=== PATIENT | female | born 1990 | race Caucasian/White ===

== ENCOUNTER → 2017-08-12 | Outpatient (CLI) | payer SELFPAY ==
--- NOTE | 2017-08-12 16:16 | RADIOLOGY REPORT (SQ) ---
EXAM DESCRIPTION: U/S OB TRANSVAGINAL W/O DOP COMPLETED DATE/TIME: 08/12/2017 3:58 pm REASON FOR STUDY: Z34.81 ENCOUNTER FOR SUPRVSN OF NORMAL , FIRST TRIMESTER Z34.81 ENCOUNTE R FOR SUPRVSN OF NORMAL , FIRST TRIM COMPARISON: None. TECHNIQUE: Transvaginal static and realtime grayscale images acquired of the pelvis. Additional sudhir cted spectral and color Doppler images recorded. All images stored on PACs. bHCG: Not available. LIMITATIONS: None. FINDINGS: FETUS: Living intrauterine . EGA: 6 weeks 1 day ISAIAS: 04/06/2018 FHR: 123 beats per minute. SUBCHORIONIC BLEED: No SIZE OF BLEED: Not applicable. UTERUS: No masses or anomalies. 10.2 x 6.1 x 6 cm PE CERVICAL LENGTH: 3 cm Closed. RIGHT ADNEXA: Ovary not seen. No adnexal free fluid. No adnexal masses. LEFT ADNEXA: Normal ovary measures 3.6 x 3.4 x 1.7 cm. There is a 1 x 2 x 1.1 cm cyst. No adnexal free fluid. No adnexal masses. FREE FLUID: None. OTHER: No other significant finding. IMPRESSION: LIVING INTRAUTERINE . EGA 6 weeks 1 day Trimester of : First - 0 to 13 weeks. TECHNICAL DOCUMENTATION: JOB ID: [id number] [employer]- All Rights Reserved
== END ==
LOC: RAD 13:42
PROVIDERS: ATTEND Nurse Practitioner Women's Health
DX: Z34.81 Encounter for supervision of other normal pregnancy, first trimester (principal)
CPT/HCPCS: 76817

== ENCOUNTER 2017-08-23 17:02 | Emergency (ER) | payer MEDICAID ==
--- NOTE | 2017-08-23 17:35 | ER Document Report ---
ED Medical Screen (RME) - General Chief Complaint: Abdominal Pain Stated Complaint: ABDOMINAL PAIN Time Seen by Provider: 08/23/17 17:32 Notes: Patient says that she has had abdominal pain around the umbilicus for the past couple of days. She has had a couple of episodes of vomiting, no diarrhea. No fevers. No UTI symptoms. Patient is about 8 weeks . She has not had any bleeding or spotting. She had an outpatient ultrasound performed here about 2 weeks ago which showed a living IUP. TRAVEL OUTSIDE OF THE [place] IN LAST 30 DAYS: No
[2017-08-23 17:37] VITALS: BP 119/60
[2017-08-23 18:15] LABS: ABSOLUTE BASOPHILS # (AUTO) 0.1 10^3/uL (0.0-0.2); ABSOLUTE EOSINOPHILS # (AUTO) 0.3 10^3/uL (0.0-0.6); ABSOLUTE LYMPHOCYTES (AUTO) 2.6 10^3/uL (0.5-4.7); ABSOLUTE MONOCYTES (AUTO) 0.8 10^3/uL (0.1-1.4); ABSOLUTE NEUT (AUTO) 6.6 10^3/uL (1.7-8.2); BASOPHILS % (AUTO) 0.7 % (0-2); EOSINOPHILS % (AUTO) 2.9 % (0-6); HEMATOCRIT 36.4 % (36.0-47.0); HEMOGLOBIN 12.3 g/dL (12.0-15.5); HGB HCT DIFFERENCE 0.5; MEAN CORPUSCULAR HEMOGLOBIN 30.4 pg (27.0-33.4); MEAN CORPUSCULAR HGB CONC 33.9 g/dL (32.0-36.0); MEAN CORPUSCULAR VOLUME 90 fl (80-97); MONOCYTES % (AUTO) 7.9 % (3-13); RED BLOOD COUNT 4.06 10^6/uL (3.72-5.28); RED CELL DISTRIBUTION WIDTH 13.4 % (11.5-14.0); SEGMENTED NEUTROPHILS % (AUTO) 63.5 % (42-78); WHITE BLOOD COUNT 10.4 10^3/uL (4.0-10.5)
[2017-08-23 18:38] LABS: ALANINE AMINOTRANSFERASE 21 U/L (9-52); ALBUMIN 4.2 g/dL (3.5-5.0); ALKALINE PHOSPHATASE 65 U/L (38-126); ANION GAP 13 (5-19); ASPARTATE AMINO TRANSFERASE 14 U/L (14-36); BILIRUBIN,DIRECT 0.3 mg/dL (0.0-0.4); BILIRUBIN,TOTAL 0.4 mg/dL (0.2-1.3); BLOOD UREA NITROGEN 9 mg/dL (7-20); CALCIUM 8.9 mg/dL (8.4-10.2); CARBON DIOXIDE 25 mmol/L (22-30); CHLORIDE 103 mmol/L (98-107); CREATININE RESULT 0.55 mg/dL (0.52-1.25); GLUCOSE 82 mg/dL (75-110); LIPASE 41.9 U/L (23-300); POTASSIUM 3.8 mmol/L (3.6-5.0); SODIUM 141.3 mmol/L (137-145); TOTAL PROTEIN 6.9 g/dL (6.3-8.2)
== END 2017-08-23 19:14 | disposition left against medical advice (07) ==
LOC: ER 17:02
DX: O26.91 Pregnancy related conditions, unspecified, first trimester (principal); R10.33 Periumbilical pain; Z3A.08 8 weeks gestation of pregnancy
CPT/HCPCS: 36415; 80053; 83690; 84702; 85025; 99281

== ENCOUNTER 2018-01-28 22:12 | Outpatient (CLI) | payer MEDICAID ==
[2018-01-28 22:48] LABS: APPEARANCE,URINE CLEAR; BILIRUBIN,URINE NEGATIVE (NEGATIVE); COLOR,URINE YELLOW; GLUCOSE, URINE NEGATIVE (NEGATIVE); KETONES,URINE NEGATIVE (NEGATIVE); LEUKOCYTE ESTERASE,URINE NEGATIVE (NEGATIVE); NITRITE,URINE NEGATIVE (NEGATIVE); PROTEIN,URINE NEGATIVE (NEGATIVE); URINE SPECIFIC GRAVITY 1.008
[2018-01-28 23:14] LABS: URINE AMPHETAMINES SCREEN NEGATIVE; URINE BARBITURATES SCREEN NEGATIVE; URINE BENZODIAZEPINES SCREEN NEGATIVE; URINE COCAINE SCREEN NEGATIVE; URINE METHADONE SCREEN NEGATIVE; URINE PHENCYCLIDINE SCREEN NEGATIVE
[2018-01-28 23:15] LABS: URINE MARIJUANA (THC) SCREEN UNCONFIRMED POSITIVE
== END 2018-01-29 00:02 | disposition home or self-care (01) ==
LOC: LC 22:12
PROVIDERS: ATTEND Obstetrics & Gynecology Gynecology
PROC: 4A1HXCZ Monitoring of Products of Conception, Cardiac Rate, External Approach (ICD-10-PCS; principal; 2018-01-28)
DX: O47.03 False labor before 37 completed weeks of gestation, third trimester (principal); Z3A.30 30 weeks gestation of pregnancy
CPT/HCPCS: 59899; 81001; 80307; G0480 ×2

== ENCOUNTER 2018-02-21 11:12 | Outpatient (CLI) | payer MEDICAID ==
--- NOTE | 2018-02-21 13:25 | L&D Progress Notes ---
PROGRESS NOTES Datetime Report Generated by [employer]: 02/21/2018 13:24 PROGRESS NOTE Comment: was called to patient's bs to assess and evaluate patient's c/o "pain". Was informed prior to my arrival that patient had been uncooperative regarding monitoring and would not collect a urine sample until assesed by a Physician. I reviewed patient's medical records prior to entering the exam room. Patient was initially cooperative and allowed me to perform a cervical exam which I ascertained she was not dilated. I provided assurance that this was a good thing in light of her EGA of 34 3/7. Patient then seemed to become more frustrated. I began asking her to collect a urine for a UA to continue our assessement and she indicated she did not need to urinate. I explained "no problem. We'll give you fluids and then when you feel the need to urinate we'll have you collect a sample for assessment of possible UTI/dehydration, etc." She became more agitated and c/o pain. When I tried to explain that assessment of pain in the third trimester included a UA and further monitoring for contractions etc. (up to this point patient was uncooperative with the nurses with monitoring.) Patient continued to get more agitated and kept asking me to explain why she was having pain. She repeated several times "I should just go to [place]." I told her that she could go if she wished but that we really should continue with our assessment of her discomfort. She continued to get agitated and would not comply for requests for monitoring. I tried multiple times to explain the process for assessment of pain in and she kept shaking her head and claiming that I "wasn't listening to her." I said "Ms. Degroot, I am listening to you and I am doing my best to assess you as I would any patient presenting to me in your situation." She then said that she wanted the name of the acid supervisor and all of our names. I then left the room and explained to her that I would be documenting our encounter in her chart. Per the RN the patient referred to me as a "Cunt" as I was leaving. (I was fortunate not to hear this myself.) Of note in her records from [place] (which is where she has been receiving her care.) there were several references to similar encounters with the providers there. SIGNATURE SIGNATURE: [id number] Signature: with User ID: [email or web address]
== END 2018-02-21 12:33 | disposition left against medical advice (07) ==
LOC: LC 11:12
PROVIDERS: ATTEND Obstetrics & Gynecology
PROC: 4A1HXCZ Monitoring of Products of Conception, Cardiac Rate, External Approach (ICD-10-PCS; principal; 2018-02-21)
DX: Z34.93 Encounter for supervision of normal pregnancy, unspecified, third trimester (principal); Z53.21 Procedure and treatment not carried out due to patient leaving prior to being seen by health care provider

== ENCOUNTER 2018-09-05 08:48 | Emergency (ER) | payer MEDICAID ==
[2018-09-05 09:01] VITALS: BP 139/68
--- NOTE | 2018-09-05 09:54 | ER Document Report ---
ED General - General TRAVEL OUTSIDE OF THE [place] IN LAST 30 DAYS: No - General Chief Complaint: Shortness Of Breath Stated Complaint: COUGH Time Seen by Provider: 09/05/18 09:40 - HPI Notes: Patient is a 28-year-old female who is approximately 10 weeks who presents to the ED complaining of nasal congestion/discharge, irritated throat, dry nonproductive cough times 3 days. Patient states that she does feel wheezy with the cough on occasion and not at rest (that is what she describes as "SOB") . Pt has had n/v x2-3 episodes over the last couple of days, but is not sure if that is just her or not. She is able to ambulate and perform her ADLs without any difficulties. Patient states that she is primarily here for a work note and inhaler. Patient states that her is also ill with similar symptoms. Denies any drug allergies. She has not noticed any vaginal discharge , odor, bleeding, pelvic pain. She is eating and drinking without difficulty. She is urinating normally and having normal bowel movements. Pt did not receive her flu vaccine. Denies any headache, fever, neck pain, chest pain, palpitations, syncope, shortness of breath, abdominal pain, diarrhea, urinary retention, dysuria, hematuria, or rash. (KESHA HERNÁNDEZ) - Related Data Allergies/Adverse Reactions: No Known Allergies Allergy (Verified 01/28/18 23:56) Past Medical History - Social History Smoking Status: Current Every Day Smoker Chew tobacco use (# tins/day): No Frequency of alcohol use: None Drug Abuse: None Family History: Reviewed & Not Pertinent Patient has suicidal ideation: No Patient has homicidal ideation: No Renal/ Medical History: Denies: Hx Peritoneal Dialysis Review of Systems - Review of Systems -: Yes All other systems reviewed and negative Physical Exam - Vital signs Vitals: Temp Pulse Resp BP Pulse Ox 98.4 F 104 H 18 139/68 H 96 09/05/18 08:49 09/05/18 08:49 09/05/18 08:49 09/05/18 08:49 09/05/18 08:49 Notes: pt not tachycardic (88 apical) (KESHA HERNÁNDEZ) - Notes Notes: PHYSICAL EXAMINATION: GENERAL: Well-appearing, well-nourished and in no acute distress. A&Ox4. Answers questions appropriately. Moves comfortably w/o notable distress HEAD: Atraumatic, normocephalic. EYES: Pupils equal round and reactive to light, extraocular movements intact, sclera anicteric, conjunctiva are normal. ENT: EAC clear b/l. TM's intact b/l without erythema, fluid, or perforation. Nares patent and with clear discharge. oropharynx no erythema without exudates. No tonsilar hypertrophy without erythema or exudate. No palatine shift. Uvula midline. No tongue protrusion. No drooling, hoarseness, or airway compromise. Moist mucous membranes. No sinus tenderness. NECK: Normal range of motion, supple without lymphadenopathy. No rigidity/ meningismus. LUNGS: Breath sounds clear to auscultation bilaterally and equal. No wheezes rales or rhonchi. No retractions HEART: Regular rate and rhythm without murmurs, rubs, gallops. ABDOMEN: Soft, nontender, nondistended abdomen. No guarding, no rebound. No masses appreciated. Normal bowel sounds present. No CVA tenderness bilaterally. No hepatosplenomegaly. NEUROLOGICAL: Normal speech, normal gait. Normal sensory, motor exams PSYCH: Normal mood, normal affect. SKIN: Warm, Dry, normal turgor, no rashes or lesions noted. (KESHA HERNÁNDEZ) Course - Re-evaluation Re-evalutation: 09/05/18 11:36 Patient is upset about a variety subjects and asked to be seen by a supervising physician due to feeling like she was not being adequately heard. Patient is a 28-year-old female, currently approximately 10 weeks presents to the emergency department complaining of multiple symptoms including vomiting, decreased food input, subjective fevers, chills onset approximately 3 days ago. Patient states that she has been unable to keep down any foods or liquids. She further states when she would attempt to consume foods or liquids, she would immediately projective vomit. She also complains of throat pain, trouble breathing, difficulty swallowing due to pain and nasal congestion. She denies any abdominal cramps, vaginal bleeding or discharge, dysuria, burning with urination, concern of sexually transmitted diseases or any sexual partners. Patient states she is following up with OBGYN and has already had an ultrasound. She further expresses concern for her . GENERAL: Alert, interacts well. No acute distress. HEAD: Normocephalic, atraumatic. EYES: Pupils equal, round, and reactive to light. Extraocular movements intact. ENT: Oral mucosa moist, tongue midline. NECK: Full range of motion. Supple. Trachea midline. LUNGS: Trace expiratory wheezing with forced expiration. No respiratory distress. HEART: Regular rate and rhythm. No murmurs, gallops, or rubs. ABDOMEN: Soft, non-tender. Non-distended. Bowel sounds present in all 4 quadrants. EXTREMITIES: Moves all 4 extremities spontaneously. NEUROLOGICAL: Alert and oriented x3. Normal speech PSYCH: Normal affect, normal mood. SKIN: Warm, dry, and normal turgor. No rashes or lesions noted. Bedside ultrasound performed. Able to visualize heartbeat. (EMILIA CABRERA) 09/05/18 10:34 I was notified by our PCT that the patient began cussing, swearing, becoming very belligerent, and very demanding which prompted me to go talk to the patient again. Patient became very belligerent and was speaking in nonstop sentences at a mile a minute screaming at the top of her lungs, swearing, causing, stating that we did not offer her anything to drink or give her any medicine and that the influenza test should have been done right when she walked to the front door because she does not want to wait 40 minutes approximately for the results. Patient became very upset that we were not checking her baby as she is 10 weeks , and I tried to reiterate to her that she had no pelvic pain or vaginal symptoms to warrant checking her baby, but that we could do heart tones. Patient has all upper respiratory symptoms and is clearly not having any trouble breathing with normal vital signs. I tried to explain to the patient very calmly and was witnessed by the PCT that soon as I left her room I placed orders for some Zofran as well as influenza testing. Patient states that she does not want pills, but then continued to complain that we did not give her Tylenol. She does not have any fever. I did offer her cough drops as well, but patient declined. Patient states that she does not want to see me and wants to see a "real doctor." Patient is also demanding her work note and was upset that she did not receive it right away after she was told by our PCT that she will be getting it with her discharge instructions. I did review with Dr. Yates about this case who will evaluate the patient. Patient is an afebrile, well-hydrated, 28-year-old female who presents to the ED with acute URI, suspect viral. Vitals are acceptable. PE is otherwise unremarkable. Pt declined influenza testing. Risk/benefit reviewed. No other labs or imaging warranted at this time based on H&P. Patient has no significant cardiopulmonary or immunocompromised medical conditions. Patient's lungs are clear to auscultation bilaterally without tachycardia, hypoxia, or tachypnea. Patient is tolerating p.o. without any difficulties. Low suspicion for any meningitis, sepsis, peritonsillar/pharyngeal abscess, respiratory compromise, severe dehydration, or other emergent systemic condition at this time. Patient is aware this condition can change from initial presentation and she needs to monitor symptoms closely. Conservative measures otherwise for symptoms. Recheck with your PCM in 3-5 days. Return to the ED with any worsening/concerning symptoms otherwise as reviewed in discharge. Patient is in agreement. (KESHA HERNÁNDEZ) 09/05/18 17:02 heart tones approximately 145 bpm. (BAKARI YATES) - Vital Signs Vital signs: Temp Pulse Resp BP Pulse Ox 98.4 F 104 H 18 139/68 H 96 09/05/18 08:49 09/05/18 08:49 09/05/18 08:49 09/05/18 08:49 09/05/18 08:49 Discharge - Discharge Clinical Impression: Acute URI, First trimester Vomiting Qualifiers: Vomiting type: unspecified Vomiting Intractability: intractable Nausea presence : with nausea Qualified Code(s): R11.2 - Nausea with vomiting, unspecified Condition: Stable Disposition: HOME, SELF-CARE Additional Instructions: You have declined influenza testing. Influenza is better treated if found within 72 hours and started on tamiflu in that time. You have also declined nausea medication here in the emergency department as well as any other further workup at this time. I will send you home with Zofran which is a nausea medication which should you may use if needed to help with nausea and vomiting. Maintain adequate fluid intake Take meds as directed tylenol as needed Humidified air may help Wash your hands regularly Wear a mask when coughing F/u: with your PCM in 3-5 days for a recheck Return to the ED with any fever, worsening pain, chest pain, palpitations, syncope, worsening LE[place], neck pain/stiffness, shortness of breath, wheezing, drooling, trouble swallowing/breathing, abdominal pain, n/v/d, rash, or worsening/concerning symptoms otherwise. Prescriptions: Benzonatate [Tessalon Perles 100 mg Capsule] 100 mg PO Q8HP PRN #30 capsule PRN Reason: Mometasone Furoate [Nasonex] 1 spray NS Q12 #1 spray.pump Ondansetron [Zofran Odt 4 mg Tablet] 1 - 2 tab PO Q4H PRN #15 tab.rapdis PRN Reason: For Nausea/Vomiting Promethazine HCl [Phenergan 25 mg Tablet] 1 - 2 tab PO Q6H PRN #15 tablet PRN Reason: Promethazine HCl [Phenergan 25 mg Supp.rect] 1 supp MA Q6H #12 supp.rect Forms: Return to Work Referrals: [facility] [Provider Group] - Follow up as needed Scribe Attestation: 09/05/18 17:02 I personally performed the services described in the documentation, reviewed and edited the documentation which was dictated to the scribe in my presence, and it accurately records my words and actions. (BAKARI YATES)
[2018-09-05] MEDS ORDERED: ONDANSETRON 4 MG TAB.RAPDIS PO ONE (10:04)
[2018-09-05] MEDS ORDERED: ALBUTEROL SULFATE HFA (90 MCG/PUFF) 8 GM MDI (1 MDI/ER DISP) IH PRN (11:33)
== END 2018-09-05 11:42 | disposition home or self-care (01) ==
LOC: ER 08:48
DX: O21.9 Vomiting of pregnancy, unspecified (principal); O26.891 Other specified pregnancy related conditions, first trimester; O99.519 Diseases of the respiratory system complicating pregnancy, unspecified trimester; J06.9 Acute upper respiratory infection, unspecified; R06.02 Shortness of breath; R09.81 Nasal congestion; R09.89 Other specified symptoms and signs involving the circulatory and respiratory systems; J02.9 Acute pharyngitis, unspecified; R05 Cough; Z3A.10 10 weeks gestation of pregnancy; O99.331 Smoking (tobacco) complicating pregnancy, first trimester
CPT/HCPCS: 99283; J3490

== ENCOUNTER 2019-01-30 15:41 | Outpatient (CLI) | payer MEDICAID | END 2019-01-30 16:17 | disposition left against medical advice (07) | LOC: LC 15:41 | PROVIDERS: ATTEND Student in an Organized Health Care Education/Training Program | PROC: 4A1HXCZ Monitoring of Products of Conception, Cardiac Rate, External Approach (ICD-10-PCS; principal; 2019-01-30) | DX: O26.893 Other specified pregnancy related conditions, third trimester (principal); M54.9 Dorsalgia, unspecified; R10.9 Unspecified abdominal pain; Z3A.31 31 weeks gestation of pregnancy ==

== ENCOUNTER 2019-05-14 19:44 | Emergency (ER) | payer MEDICAID ==
[2019-05-14 19:57] VITALS: BP 131/69
[2019-05-14] MEDS ORDERED: CEPHALEXIN 500 MG CAPSULE PO ONE (20:20)
[2019-05-14] MEDS ORDERED: IBUPROFEN 800 MG TABLET PO ONE (20:20)
[2019-05-14] MEDS ORDERED: HYDROCODONE/ACETAMINOPHEN 5-325 MG (6 TAB/ER DISP) PO PRN (20:20)
--- NOTE | 2019-05-14 20:25 | ER Document Report ---
HPI - HPI Patient complains to provider of: lump to scalp Time Seen by Provider: 05/14/19 20:15 Onset: This afternoon Onset/Duration: Sudden Quality of pain: Achy Pain Level: 5 Context: Patient complains of tender lump to scalp that just started to develop today. Patient states area has gradually gotten larger throughout the day. Patient denies any injury or fever. Associated Symptoms: Other - Tender lump to scalp. denies: Fever Exacerbated by: Denies Relieved by: Denies Similar symptoms previously: No Recently seen / treated by doctor: No - ROS ROS below otherwise negative: Yes Systems Reviewed and Negative: Yes All other systems reviewed and negative - CONSTITUTIONAL Constitutional: DENIES: Fever, Chills - EENT EENT: DENIES: Sore Throat, Ear Pain, Eye problems - RESPIRATORY Respiratory: DENIES: Coughing - REPRODUCTIVE Reproductive: DENIES: : - MUSCULOSKELETAL Musculoskeletal: DENIES: Extremity pain - DERM Skin Color: Normal Skin Problems: None Past Medical History - General Information source: Patient - Social History Smoking Status: Current Every Day Smoker Smoking Education Provided: Yes Frequency of alcohol use: None Drug Abuse: None Occupation: none Lives with: Family Family History: Reviewed & Not Pertinent Patient has suicidal ideation: No Patient has homicidal ideation: No - Medical History Medical History: Negative Renal/ Medical History: Denies: Hx Peritoneal Dialysis Surgical Hx: Negative Vertical Provider Document - CONSTITUTIONAL Agree With Documented VS: Yes Exam Limitations: No Limitations General Appearance: WD/WN, No Apparent Distress - INFECTION CONTROL TRAVEL OUTSIDE OF THE [place] IN LAST 30 DAYS: No - HEENT HEENT: Atraumatic, Normocephalic Notes: tender lymph to left occipital scalp, small pustular lesion to scalp along left occipital hairline - NECK Neck: Normal Inspection, Supple. negative: Lymphadenopathy-Left, Lymphadenopathy-Right - RESPIRATORY Respiratory: No Respiratory Distress - BACK Back: Normal Inspection - MUSCULOSKELETAL/EXTREMETIES Musculoskeletal/Extremeties: JUDY BURNETT - NEURO Level of Consciousness: Awake, Alert, Appropriate Motor/Sensory: No Motor Deficit Course - Re-evaluation Re-evalutation: 05/14/19 20:22 Patient with what appears to be enlarged lymph node to the left occipital scalp. Patient does have a small pustular lesion within the hairline. Pt non toxic in appearance - Vital Signs Vital signs: Temp Pulse Resp BP Pulse Ox 98.8 F 64 16 131/69 H 99 05/14/19 19:54 05/14/19 19:54 05/14/19 19:54 05/14/19 19:54 05/14/19 19:54 Discharge - Discharge Clinical Impression: Pustule, Lymphadenopathy Condition: Stable Disposition: HOME, SELF-CARE Instructions: Cephalexin ([facility]), Lymphadenopathy ([facility]) Additional Instructions: Return immediately for any new or worsening symptoms Followup with your primary care provider, call tomorrow to make a followup appointment Prescriptions: Cephalexin Monohydrate [Keflex 500 mg Capsule] 500 mg PO Q6H 5 Days capsule Naproxen [Naprosyn 250 Nmg Tablet] 1 tab PO BID #14 tablet Forms: Smoking Cessation Education Referrals: [facility] [Provider Group] - Follow up as needed
== END 2019-05-14 20:30 | disposition home or self-care (01) ==
LOC: ER 19:44
DX: L08.9 Local infection of the skin and subcutaneous tissue, unspecified (principal); R59.1 Generalized enlarged lymph nodes; F17.200 Nicotine dependence, unspecified, uncomplicated
CPT/HCPCS: 99282; J3490